=== PATIENT | male | born 1955 | race Caucasian/White ===

== ENCOUNTER 2017-11-18 09:17 | Outpatient (CLI) | payer OTHER | END 2017-11-18 09:18 | disposition home or self-care (01) | LOC: BICRAD 09:17 | PROVIDERS: ATTEND Internal Medicine | DX: Z02.71 Encounter for disability determination (principal); R91.8 Other nonspecific abnormal finding of lung field | CPT/HCPCS: 71046 ==

== ENCOUNTER 2018-10-27 20:30 | Outpatient (CLI) | payer MEDICARE | END 2018-10-27 20:31 | disposition home or self-care (01) | LOC: SLEEPLAB 20:30 | PROVIDERS: ATTEND Otolaryngology Plastic Surgery within the Head & Neck | DX: G47.33 Obstructive sleep apnea (adult) (pediatric) (principal); G25.81 Restless legs syndrome; R53.83 Other fatigue; R51 Headache; G47.61 Periodic limb movement disorder; G47.00 Insomnia, unspecified; R06.83 Snoring; E66.9 Obesity, unspecified; K21.9 Gastro-esophageal reflux disease without esophagitis; E11.9 Type 2 diabetes mellitus without complications; Z68.43 Body mass index [BMI] 50.0-59.9, adult | CPT/HCPCS: 95810 ==

== ENCOUNTER 2018-10-31 09:44 | Outpatient (CLI) | payer MEDICARE, OTHER ==
--- NOTE | 2018-10-31 10:08 | RAD ---
XR Chest Pa Lat STANDARD HISTORY: Shortness of breath, dyspnea on exertion COMPARISON: 06/18/2018 FINDINGS: The heart is enlarged. Chronic changes again seen. The lungs are well expanded without foca l areas of consolidation, pneumothoraces, suki pulmonary edema or pleural effusions. There are mild degenerative changes in the spine. IMPRESSION: No acute process.
== END 2018-10-31 09:45 | disposition home or self-care (01) ==
LOC: BICRAD 09:44
PROVIDERS: ATTEND Family Medicine
DX: R06.09 Other forms of dyspnea (principal); R06.02 Shortness of breath
CPT/HCPCS: 36415; 71046; 83880; 84484

== ENCOUNTER 2018-12-14 20:30 | Outpatient (CLI) | payer MEDICARE, OTHER | END 2018-12-14 20:31 | disposition home or self-care (01) | LOC: SLEEPLAB 20:30 | PROVIDERS: ATTEND Otolaryngology Plastic Surgery within the Head & Neck | DX: G47.33 Obstructive sleep apnea (adult) (pediatric) (principal); G25.81 Restless legs syndrome; G47.9 Sleep disorder, unspecified; R53.83 Other fatigue; R51 Headache; G47.00 Insomnia, unspecified; R06.83 Snoring; G47.10 Hypersomnia, unspecified; E66.9 Obesity, unspecified; Z68.43 Body mass index [BMI] 50.0-59.9, adult | CPT/HCPCS: 95811 ==

== ENCOUNTER 2019-01-12 13:12 | Outpatient (CLI) | payer MEDICARE ==
--- NOTE | 2019-01-12 13:35 | RAD ---
EXAM: Chest 2 views: HISTORY: Dyspnea COMPARISON: None. FINDINGS: There is a normal-sized cardiomediastinal silhouette. There is no evidence of consolidation, mass, or pleural effusion. The bones are unremarkable. IMPRESSION: No evidence of acute cardiopulmonary disease
== END 2019-01-12 13:13 | disposition home or self-care (01) ==
LOC: RAD 13:12
PROVIDERS: ATTEND Internal Medicine Pulmonary Disease
DX: R06.00 Dyspnea, unspecified (principal)
CPT/HCPCS: 71046

== ENCOUNTER 2019-03-02 12:57 | Outpatient (CLI) | payer MEDICARE | END 2019-03-02 12:58 | disposition home or self-care (01) | LOC: DTY/OP 12:57 | PROVIDERS: ATTEND Surgery | DX: E66.01 Morbid (severe) obesity due to excess calories (principal) | CPT/HCPCS: 97802 ==

== ENCOUNTER 2019-10-06 08:55 | Outpatient (CLI) | payer MEDICARE | END 2019-10-06 08:56 | disposition home or self-care (01) | LOC: DTY/OP 08:55 | PROVIDERS: ATTEND Surgery | DX: R06.02 Shortness of breath (principal); E78.5 Hyperlipidemia, unspecified; E11.9 Type 2 diabetes mellitus without complications; I10 Essential (primary) hypertension; E66.01 Morbid (severe) obesity due to excess calories | CPT/HCPCS: 97802 ==